=== PATIENT | male | born 1995 | race Caucasian/White ===

== ENCOUNTER 2021-12-23 10:46 | Emergency (ER) | payer MEDICAID, SELFPAY ==
[2021-12-23 10:55] VITALS: BP 110/67; BP 119/82; PULSE 79; PULSE 88; RESP 16; TEMP 36.7; O2SAT 98; O2SAT 99; BMI 24.8
[2021-12-23 11:16] VITALS: BP 107/66; PULSE 80; RESP 16; O2SAT 99
--- NOTE | 2021-12-23 11:22 | PC.NURSE ---
Pt arrives from [place] detox with ethanol level in the 300s. Pt stating that he is supposed to be going to detox but they will not take him because his ethanol level is too high. Pt is alert, oriented, and pleasant upon assessment, slurring his words, and falling asleep intermittently during assessment. call keita within reach.
--- NOTE | 2021-12-23 11:42 | ED_ITS ---
HPI - Alcohol General Chief Complaint: ETOH/Substance Use Stated Complaint: etoh Time Seen by Provider: 12/23/21 11:11 Source: patient Mode of arrival: ambulatory History of Present Illness HPI narrative: 26-year-old male with a past medical history of ETOH/substance abuse, presenting to the ED after trying to go to detox at [place] this morning however was sent to ED for being too intoxicated, reportedly ethanol was 322 at [place]. Patient admits to drinking a few beers, last drink 07:30. Reports drinking half a pt of hard liquor every 2 days. Also reports marijuana use. Denies other illicit drugs, SI/HI, CP/SOB, abdominal pain nausea/vomiting MD complaint: alcohol intoxication Last drink: Hours (ago) Related Data Allergies Allergy/AdvReac Type Severity Reaction Status Date / Time No Known Allergies Allergy Verified 12/23/21 11:19 Review of Systems Review of Systems: Constitutional: No Fever, No Chills ENT/Mouth: No Ear Pain, No Nasal Congestion,No sore throat Eyes: No Eye Pain, No Swelling, No Redness, No Foreign Body, No Discharge, No Vision Changes Cardiovascular: No Chest Pain, No SOB Respiratory: No Cough, No Dyspnea Gastrointestinal: No Nausea, No Vomiting, No Diarrhea, No Constipation, No Abdominal pain Genitourinary: No Dysuria, No Flank Pain Musculoskeletal: No joint pain, No Myalgias, No Joint Swelling Skin: No Skin Lesions, No rash Neuro: No Weakness, No Headache Psych: No Depression, No SI/HI Yes all other systems are reviewed and are negative [facility] [place] Past Medical History Attestation statement: The following information was validated with the patient. Medical History No known health problems Social History Social History Alcohol intake: current Alcohol intake frequency: 3 or more drinks per day Alcohol type: beer and hard liquor Patient Tobacco Use Status: Current everyday Tobacco user Smoked in Last 30 Days: Yes Use of substances other than those prescribed or required for medical reasons: Yes Substance Use Type: Marijuana Advance Directives: Yes Advance Directives Information Provided: Yes Advance Directives on File: No Physical Exam ED Vital Signs: Vital Signs - 24 hr 12/23/21 10:55 12/23/21 11:16 12/23/21 13:48 Temperature 98.0 F Pulse Rate 79 80 72 Respiratory Rate 16 16 18 Blood Pressure 110/67 107/66 95/42 L Pulse Oximetry 98 99 97 12/23/21 14:30 Temperature Pulse Rate 75 Respiratory Rate 20 Blood Pressure 99/53 L Pulse Oximetry 98 BMI result Body Mass Index 24.8 Const Other: appears under the influence, EtOH odor on breath. Arousable to voice/sternal rub General: no acute distress HENMT Head: Yes normal to inspection and Yes atraumatic Ears: hearing grossly normal bilaterally General nose exam: Normal external nose present Face and sinus: Yes normal facial exam Eyes General: appearance normal, both eyes and all related structures Pupils: Equal, round and reactive pupils present and Dilated pupils bilaterally EOM: EOMs intact bilaterally Neck Neck: Yes normal visual inspection and Yes no meningeal signs Resp Effort & Inspection: normal respiratory effort Auscultation: clear to auscultation bilaterally, no crackles, no rales and no wheezes Cardio Rate: regular rate Heart sounds: S1 normal heart sound present and S2 normal heart sound present GI Inspection: Yes normal to inspection Palpation (GI): Soft to palpation, nontender, no guarding and not rigid Skin Rashes: no rashes Wounds: no wounds Neuro General: no meningeal signs Cranial nerves: Yes Equal, round and reactive pupils present Gait exam (Neuro): Normal gait present Extrem General: Yes normal to inspection Psych Appearance: grossly normal Thought content: suicidality and no homicidality Course Course Course Narrative: -magnesium 1.5 > PO repletion given. AST/ALT elevated likely alcoholic hepatitis from chronic EtOH abuse > abdomen is soft/nontender no need for ultrasound at this time, patient can follow up with Gastroenterology outpatient -ethanol [phone]--patient awake and alert watching television. Will be transported from ED back to [facility] for detox at 04:30 MDM - Alcohol MDM Narrative Medical decision making narrative: 26-year-old male with a past medical history of ETOH/substance abuse, presenting to the ED after trying to go to detox at [place] this morning however was sent to ED for being too intoxicated. On exam vital signs stable, appears under the influence/H&H odor on breath, sleeping/arousable to voice and sternal rub, alert, cooperative, no signs of trauma. Denies SI/HI Plan: Labs, WISE, observe and reassess for clinical sobriety Nadeen Lau is holding bed for patient Differential Diagnosis Differential diagnosis: Likely alcohol dependence and alcohol intoxication Medical Records Attestation: I reviewed the patient's medical records. Lab Data Attestation: I reviewed the patient's lab results. Result diagrams: 12/23/21 11:53 12/23/21 11:53 Labs: Lab Results 12/23/21 12/23/21 12/23/21 Range/Units 11:28 11:53 11:53 WBC 5.1 (4.8-10.8) X10*3/uL RBC 4.42 L (4.60-5.80) X10*6/uL Hgb 15.0 (14.0-18.0) g/dl Hct 40.8 L (42.0-52.0) % MCV 92.3 (80.0-98.0) fL MCH 33.9 H (27.0-33.0) pg MCHC 36.8 H (31.0-36.0) g/dl RDW 13.2 (11.0-16.0) % Plt Count 220 (160-400) X10*3/uL MPV 9.6 (9.4-12.4) fL Immature Gran % (Auto) 0.0 (0.0-0.4) % Neut % (Auto) 34.6 L (45-73) % Lymph % (Auto) 53.5 H (20-40) % [place] % (Auto) 9.1 (2-11) % Eos % (Auto) 1.4 (0-4) % Baso % (Auto) 1.4 (0-2) % Lymph # (Auto) 2.7 (1.2-4.9) X10*3/uL [place] # (Auto) 0.5 (0.1-1.2) X10*3/uL Eos # (Auto) 0.1 (0.0-0.4) X10*3/uL Baso # (Auto) 0.1 (0.0-0.2) X10*3/uL Abs Immat Gran (auto) 0.00 (0.00-0.03) X10*3/uL Absolute Neuts (auto) 1.8 L (2.0-8.3) x10*3/uL Absolute Nucleated RBC 0.000 (0.0-0.012) X10*3/uL Nucleated RBC % (auto) 0.0 (0.0-0.2) /100WBC Sodium 140 (135-145) mmol/L Potassium 4.3 (3.3-5.1) mmol/L Chloride 100 (96-108) mmol/L Carbon Dioxide 28 (22-29) mmol/L Anion Gap 16 (12-20) BUN 6 L (9-16) mg/dL Creatinine 0.83 (0.5-1.4) mg/dL Estim Creat Clear Calc 144.9 Estimated GFR > 60 Random Glucose 247 H (60-115) mg/dL Calcium 9.4 (8.4-10.2) mg/dL Magnesium 1.5 L (1.6-2.6) mg/dL Total Bilirubin 0.5 (0.0-1.0) mg/dL Direct Bilirubin 0.3 (0.0-0.5) mg/dL AST 229 H (5-37) U/L ALT 298 H (0-40) U/L Alkaline Phosphatase 80 (39-117) U/L Total Protein 6.9 (6.5-8.0) g/dL Albumin 4.3 (3.5-5.0) g/dL Ethyl Alcohol 434 H* mg/dL Discharge Plan Discharge Clinical Impression: Alcoholic intoxication, Acute alcoholic hepatitis Patient Disposition: Xfer Other Transfer Details: [facility] Instructions: Abuse of Alcohol (ED), Alcoholic Hepatitis (ED) Additional Instructions: You were very intoxicated when he presented to the emergency department today Your being transported to detox. Avoid alcohol and drug use. Your liver enzymes are elevated, Consistent with alcohol abuse/alcoholic hepatitis. You need to follow-up with gastroenterology outpatient If you develop abdominal pain, nausea/vomiting, [facility] [Physician] - 2 days Adalid Blanchard MD [Physician] - 5 days
[2021-12-23 11:52] LABS: Ethanol 434 mg/dL
[2021-12-23 11:57] LABS: MANUAL DIFF FLAG NO
[2021-12-23 11:58] LABS: Basophils Absolute Auto 0.1 X10*3/uL (0.0-0.2); Basophils Percent Auto 1.4 % (0-2); Eosinophils Absolute Auto 0.1 X10*3/uL (0.0-0.4); Eosinophils Percent Auto 1.4 % (0-4); Hematocrit 40.8 % (42.0-52.0); Lymphocytes Absolute Auto 2.7 X10*3/uL (1.2-4.9); Lymphocytes Percent Auto 53.5 % (20-40); Mean Corpuscular HGB Conc 36.8 g/dl (31.0-36.0); Mean Corpuscular Hemoglobin 33.9 pg (27.0-33.0); Mean Corpuscular Volume 92.3 fL (80.0-98.0); Mean Platelet Volume 9.6 fL (9.4-12.4); Monocytes Absolute Auto 0.5 X10*3/uL (0.1-1.2); Monocytes Percent Auto 9.1 % (2-11); Neutrophils Absolute Auto 1.8 x10*3/uL (2.0-8.3); Neutrophils Percent Auto 34.6 % (45-73); Platelet Count 220 X10*3/uL (160-400); Red Blood Count 4.42 X10*6/uL (4.60-5.80); Red Cell Distribution Width 13.2 % (11.0-16.0); White Blood Count 5.1 X10*3/uL (4.8-10.8)
[2021-12-23 12:46] LABS: Alanine Aminotransferase 298 U/L (0-40); Albumin Level 4.3 g/dL (3.5-5.0); Alkaline Phosphatase 80 U/L (39-117); Anion Gap 16 (12-20); Aspartate Amino Transferase 229 U/L (5-37); Bilirubin Direct 0.3 mg/dL (0.0-0.5); Bilirubin Total 0.5 mg/dL (0.0-1.0); Blood Urea Nitrogen 6 mg/dL (9-16); Calcium 9.4 mg/dL (8.4-10.2); Carbon Dioxide 28 mmol/L (22-29); Chloride 100 mmol/L (96-108); Creatinine Clr Calc Pharmacy 144.9; Estimated Glomerular Filt Rate > 60; Glucose Random 247 mg/dL (60-115); Magnesium 1.5 mg/dL (1.6-2.6); Potassium 4.3 mmol/L (3.3-5.1); Sodium 140 mmol/L (135-145); Total Protein 6.9 g/dL (6.5-8.0)
[2021-12-23 13:48] VITALS: BP 95/42; PULSE 72; RESP 18; O2SAT 97
--- NOTE | 2021-12-23 14:00 | MHC.RECOVSUP ---
Recovery Support note: Patient has a bed at [facility] for 1630. This designer writer attempted to speak with patient however he was heavily asleep. This designer writer will discuss plan with patient as discharge approaches. Discussed case with ED provider.
[2021-12-23 14:30] VITALS: BP 99/53; PULSE 75; RESP 20; O2SAT 98
[2021-12-23] MEDS: Magnesium Oxide 400 MG TABLET PO (14:30)
== END 2021-12-23 15:52 | disposition other institution (70) ==
PROVIDERS: Physician Assistant; Emergency Provider Emergency Medicine
DX: F10.220 Alcohol dependence with intoxication, uncomplicated (principal); Y90.8 Blood alcohol level of 240 mg/100 ml or more; K70.10 Alcoholic hepatitis without ascites; F17.200 Nicotine dependence, unspecified, uncomplicated; F12.90 Cannabis use, unspecified, uncomplicated
CPT/HCPCS: 36415; 80048; 80076; 82077; 83735; 85025; 99285